=== PATIENT | male | born 1950 | race Caucasian/White ===

== ENCOUNTER 2018-06-14 06:51 | Day surgery (SDC) | payer OTHER ==
[2018-06-14 07:51] VITALS: BMI 40.0
[2018-06-14 09:37] VITALS: BP 150/82; PULSE 74; TEMP 97.9
--- NOTE | 2018-06-15 16:18 | PATH ---
Surgical Pathology Report Patient Name: GRZEGORZ DAVIES [facility]. Rec. #: [id number] /Age/Gender: 1950 (Age: 68) / M Account: [id number] Location: [facility]-ENDOSCOPY Taken: 06/14/2018 Received: 06/14/2018 Reported: 06/15/2018 Physicians: Jay Abrams M.D. Specimen(s) Received POLYP Clinical History Family history of colon cancer Postoperative diagnosis: Colon polyps, diverticulosis Final Diagnosis COLON, RIGHT, POLYPS, BIOPSY: TUBULAR ADENOMA(S). Electronically Signed Claudia Owens M.D. Gross Description Received in formalin, labeled "polyps right colon" are 5 roberts, irregular portions of soft tissue ranging from 0.2-0.4 cm. in greatest dimension. The specimens are submitted in toto in one cassette. /06/14/201806/14/2018
== END 2018-06-14 09:50 | disposition home or self-care (01) ==
LOC: JASU-ENDO 06:51
PROVIDERS: ATTEND Internal Medicine Gastroenterology
PROC: 0DBK8ZX Excision of Ascending Colon, Via Natural or Artificial Opening Endoscopic, Diagnostic (ICD-10-PCS; principal; 2018-06-14 08:00)
DX: Z12.11 Encounter for screening for malignant neoplasm of colon (principal); Z80.0 Family history of malignant neoplasm of digestive organs; D12.2 Benign neoplasm of ascending colon; K57.30 Diverticulosis of large intestine without perforation or abscess without bleeding; K64.8 Other hemorrhoids
CPT/HCPCS: 88305-TC

== ENCOUNTER 2019-05-22 05:39 | Inpatient (IN) | payer OTHER ==
[2019-05-22] MEDS ORDERED: CEFAZOLIN 3 GM in DEXTROSE 5%-WATER - 100 ML IVPB ONE (06:21)
[2019-05-22] MEDS ORDERED: TRANEXAMIC ACID 1000 MG/10 ML VIAL IVPUSH ONE (06:21)
[2019-05-22] MEDS ORDERED: CELECOXIB 200 MG CAPSULE PO ONE (06:21)
[2019-05-22] MEDS ORDERED: SODIUM CHLORIDE 0.9% P/F 10 ML VIAL IJ ONE (06:45)
[2019-05-22] MEDS ORDERED: BUPIVACAINE LIPOSOME/PF (EXPAREL) 266 MG/20 ML VIAL ONE (06:45)
[2019-05-22] MEDS ORDERED: MIDAZOLAM HCL 2 MG/2 ML SINGLE DOSE VIAL ONE (06:45)
[2019-05-22 06:57] VITALS: BMI 41.5
[2019-05-22] MEDS ORDERED: VANCOMYCIN 1,000 MG VIAL (RESTRICTED TO ID ONLY) ONE (07:02)
[2019-05-22] MEDS ORDERED: ceFAZolin SODIUM 1 GM VIAL ONE ×4 (07:02→21:11)
[2019-05-22] MEDS ORDERED: BUPIVACAINE HCL/PF 0.5% (5MG/ML) 10 ML VIAL ONE (07:59)
--- NOTE | 2019-05-22 08:00 | HP ---
Satellite [facility] - Chief Complaint Chief Complaint: left knee pain - Past Medical History Allergies/Adverse Reactions: Allergies Allergy/AdvReac Type Severity Reaction Status Date / Time Penicillins Allergy Severe Swelling Verified 05/22/19 06:27 - Current Medications Current Medications: Home Medications Medication Instructions Recorded Allopurinol 300 mg PO DAILY 06/13/18 Amlodipine Besylate 10 mg PO DAILY 06/13/18 Aspirin Coated [Ecotrin -] 81 mg PO DAILY 06/13/18 Atorvastatin Calcium 20 mg PO DAILY 06/13/18 Budesonide/Formeterol Fumarate 1 inh IH PRN PRN 06/13/18 [SYMBICORT 160/4.5mcg -] Clopidogrel Bisulfate [Clopidogrel] 75 mg PO DAILY 06/13/18 Dulaglutide [Trulicity] 1.5 mg SQ WEEKLY 06/13/18 Isosorbide Mononitrate [Isosorbide 60 mg PO DAILY 06/13/18 Mononitrate ER] Losartan/Hydrochlorothiazide 100 each PO DAILY 06/13/18 [Losartan-Hctz 100-25 mg Tab] Metoprolol Succinate [Kapspargo 100 mg PO HS 06/13/18 Sprinkle] Metoprolol Succinate [Kapspargo 200 mg PO AM 06/13/18 Sprinkle] [place]-3 Acid Ethyl Esters 2 cap PO BID 06/13/18 metFORMIN HCL [Metformin ER 1,000 mg PO BID 06/13/18 Osmotic] Cannabidiol (Cbd) Extract 100 mg PO DAILY 04/30/19 [Epidiolex] Satellite Physical Exam - Physical Examination Vital Signs: Vital Signs Period Temp Pulse Resp BP Sys/Helton Pulse Ox Last 24 Hr 98.6 F 74 20 138/84 93 General Appearance: Well Nourished, Well Developed, Alert & Oriented x3 ENT: Clear Lung: Normal air movement Extremities: Other (left knee- + swelling, + ttp ,decr rom, nvi, xrays show grade 4 tricompartmental djd) Neurological: Intact, Alert, Oriented Satellite Impression/Plan - Impression/Plan Impression: left knee djd Operative Procedure: left carolina tkr Date to be Performed: 05/22/19
[2019-05-22] MEDS ORDERED: BUDESONIDE/FORMETEROL FUMARATE 160/4.5 mcg INHALER IH PRN (08:02)
[2019-05-22] MEDS ORDERED: ONDANSETRON 4 MG/2 ML VIAL IVPUSH PRN (08:04)
[2019-05-22] MEDS ORDERED: MAG HYDROX/AL HYDROX/SIMETH 30 ML UNIT-DOSE CUP PO PRN (08:04)
[2019-05-22] MEDS ORDERED: MAGNESIUM HYDROX 2400MG/30ML ORAL SUSPENSION 30 ML CUP PO PRN (08:04)
[2019-05-22] MEDS ORDERED: LACTATED RINGERS SOLUTION 1,000 ML IV SCH (08:15)
[2019-05-22] MEDS ORDERED: VANCOMYCIN 1,000 MG VIAL (RESTRICTED TO ID ONLY) IVPB ONE (09:35)
[2019-05-22] MEDS ORDERED: SENNOSIDES/DOCUSATE COMBO (SENNA PLUS) TABLET (UD) PO SCH (10:00)
[2019-05-22] MEDS ORDERED: PATIENT'S OWN MEDICATION (NON-FORMULARY) (Metformin Hcl [Metformin Er Osmotic] 1,000 MG) PO SCH (10:00)
[2019-05-22] MEDS ORDERED: PATIENT'S OWN MEDICATION (NON-FORMULARY) (Losartan/Hydrochlorothiazide [Losartan-Hctz 100- PO SCH (10:00)
--- NOTE | 2019-05-22 10:04 | OP ---
Operative Note - Note: Operative Date: 05/22/19 ([facility]) Pre-Operative Diagnosis: left knee djd Operation: left carolina tkr Post-Operative Diagnosis: Same as Pre-op Surgeon: Adams Whiteside Batching Operator: Amado Rojas) Anesthesiologist/ORACLE EBS CONSULTANT: Rukhsana Rodriguez Anesthesia: Spinal, Local Specimens Removed: bone fragments Estimated Blood Loss (mls): 150
[2019-05-22] MEDS ORDERED: oxyCODONE HCL 5 MG TABLET PO PRN (11:28)
[2019-05-22] MEDS: traMADol HCL 50 MG TABLET PO PRN ×2 (12:04→21:33)
[2019-05-22] MEDS: ACETAMINOPHEN 325 MG TABLET (FP) PO SCH ×3 (14:02→23:48)
--- NOTE | 2019-05-22 14:05 | SPEC ---
DATE OF OPERATION: 05/22/2019 PREOPERATIVE DIAGNOSIS: Degenerative joint disease, left knee. POSTOPERATIVE DIAGNOSIS: Degenerative joint disease, left knee. PROCEDURE: Left total knee replacement with robotic-assisted navigation (Makoplasty). SURGICAL ATTENDING: Adams Whiteside MD CELLULOSE INSULATION HELPER: ALIYA Saldana SECOND MANAGER PROCESS IMPROVEMENT: Oni Vega MD ANESTHESIA: Regional and spinal. CLOSURE: A [place] Triathlon knee system with a 5 femur, 5 tibia, 9 polyethylene, 35 patella, number 1 Vicryl fascia, 0 and 3-0 subcutaneous, 3-0 Monocryl subcuticular with skin glue for skin, 4-0 undyed Vicryl for pin sites. ESTIMATED BLOOD LOSS: Less than 100 mL. COMPLICATIONS: None. CONDITION: To recovery room in stable condition. DESCRIPTION OF OPERATIVE PROCEDURE: Patient was taken to the operating room on May 22, 2019. Regional and general anesthesia was administered by the anesthesiologist. IV Kefzol and TXA were administered by the anesthesiologist. Well-padded pneumatic tourniquet was placed on the proximal thigh. The left lower extremity was prepped and draped in the usual sterile fashion. The leg was exsanguinated with an Esmarch bandage, and tourniquet was inflated to 275 mmHg. A 12 to 15-cm longitudinal midline incision was incised while centered over the patella. The dissection was carried down to the level of the extensor mechanism with sufficient flaps made to adequately perform the procedure. A medial parapatellar arthrotomy was then performed. We made a cuff of tissue on the patella for later closure. The patella was inverted, the knee was flexed up. The fat pad was excised. The subperiosteal dissection was on the anteromedial proximal tibia around towards the direction of the MCL. The ACL and the PCL were transected and debrided. The meniscal remnants of the medial and lateral meniscus were debrided and removed. This allowed the knee to be able to "be brought forward." The checkpoints were malleted into the tibia and into the femur. Two threaded pins were drilled anteroposteriorly proximal to the knee through the previous incision, through the anterior cortex, then just engaging the posterior cortex. To these pins was assembled the femoral navigation array. One handbreadth below the tibial tubercle, 2 stab incisions were used to drill 2 threaded pins in parallel fashion into the tibia, again through the anterior cortex and just engaging the posterior cortex. To these pins was fastened the tibial arrays. The knee was then registered with the navigation device with center of rotation of the hip, medial and lateral malleoli, both checkpoints, and multiple points on both the femur and the tibia to ensure excellent registration. The navigation device was directed off the "top of the bubbles" on both the femur and the tibia. The navigation passed within less than 0.5 mm to plan. The knee was then thoroughly inspected to remove all osteophytes both medially, laterally, and on the femur and the tibia, and whatever osteophytes were available for dissection. The knee was then taken to extension and to flexion and stressed in both varus and valgus to assess flexion gaps. The virtual position of the components on the navigation device were then manipulated to optimize the position and to ensure equal gaps in both flexion and extension, and both medially and laterally. The robot was then brought into the field and was registered. The cuts were then made both on the femur and on the tibia as to plan. All osteophytes posteriorly were then removed as well. The gaps were then measured again in flexion and extension to be equal in both flexion and extension and medial and laterally. The femoral notch was then made, as we were doing a posterior stabilizing component, with the appropriate sized box. Trial reduction of the femur achieved excellent [id number] fit. A tibial baseplate of appropriate polyethylene thickness was "floated in the knee." It was ensured to be in the excellent position by navigation devices and was pinned in place. The knee was taken through a range of motion and found to have excellent stability throughout flexion and extension. The patella was calibrated for thickness and osteotomized down to the appropriate level. The appropriate lollipop was used to drill the lug holes in the patella and the trial button was applied. The knee was taken through a range of motion and found to have excellent tracking of the patella, and patella from full extension to full flexion. Trial components were removed, the keel was punched and drilled, and a sclerotic bone on the tibia was drilled to help with cement interdigitation. The knee was thoroughly irrigated with the pulse antibiotic behavioral science chair. The real components were then cemented in using monitored arrangement cement techniques with antibiotic cement, and pressurization and extension. After the cement was hardened, the knee was thoroughly inspected to remove any extra cement. The real polyethylene component was then clipped into place. Range of motion, stability, and tracking were as described earlier. The checkpoints and the pins were removed. The knee was thoroughly irrigated with antibiotic irrigation. Vancomycin powder was placed into the knee for antibiotic prophylaxis. The medial parapatellar arthrotomy was then closed using number 1 Vicryl interrupted suture. After closure of the deep layer, the knee was taken through a range of motion, and found to have excellent stability of the patella with no dislocation and no undue tension on the repair. The subcutaneous was pulse antibiotic irrigated, and was then closed with 2-0 Vicryl, 3-0 Monocryl subcuticular with the skin glue for the skin. The distal tibial pin site was irrigated thoroughly as well and then closed with 4-0 undyed Vicryl. A sterile Aquacel dressing was applied, followed by a Sharpe dressing. Tourniquet was deflated. Total tourniquet time was approximately 75 minutes. No complications. Patient was awakened from anesthesia and transferred to recovery room in stable condition. Postoperative x-rays revealed excellent position of the components. Artie [id number]
[2019-05-22] MEDS: CEFAZOLIN 3 GM in DEXTROSE 5%-WATER 100 ML IVPB SCH ×2 (14:15→23:49)
[2019-05-22] MEDS: oxyCODONE HCL 5 MG TABLET PO PRN ×2 (15:05→21:33)
[2019-05-22] MEDS ORDERED: DEXTROSE 5%-WATER 100 ML IVPB ONE ×2 (15:06→21:12)
[2019-05-22] MEDS ORDERED: PT OWN MED DRAWER 7, Y5N ONE (15:06)
[2019-05-22] MEDS: INSULIN SLIDING SCALE (NOVOLOG) 1 VIAL SQ SCH ×2 (16:20→21:13)
[2019-05-22] MEDS: SENNOSIDES/DOCUSATE COMBO (SENNA PLUS) TABLET (UD) PO SCH (21:33)
[2019-05-22] MEDS ORDERED: PATIENT'S OWN MEDICATION (NON-FORMULARY) (Metoprolol Succinate [Kapspargo Sprinkle] 100 MG PO SCH (22:00)
[2019-05-23] MEDS: oxyCODONE HCL 5 MG TABLET PO PRN ×2 (00:25→07:06)
[2019-05-23] MEDS: ACETAMINOPHEN 325 MG TABLET (FP) PO SCH (06:13)
[2019-05-23] MEDS ORDERED: METOPROLOL SUCCINATE 200 MG PO SCH (07:00)
[2019-05-23 07:10] LABS: HEMOGLOBIN 12.8 GM/dl (11.7-16.9); MCH 29.1 pg (25.7-33.7); MCHC 31.2 g/dl (32.0-35.9); MEAN CELL VOLUME 93.3 fl (80-96); MEAN PLT VOLUME 8.4 fl (7.5-11.1); PLATELET COUNT 145 K/MM3 (134-434); RBC 4.39 M/mm3 (4.00-5.60); RDW 14.6 % (11.9-15.9); WHITE BLOOD COUNT 8.2 K/mm3 (4.0-10.8)
[2019-05-23] MEDS ORDERED: CLOPIDOGREL BISULFATE 75 MG TABLET (FP) PO SCH (08:00)
--- NOTE | 2019-05-23 08:30 | PN ---
Progress Note (short form) - Note Progress Note: Ortho Pt seen and examined s/p left carolina tkr pod #1 Selected Entries 05/23/19 06:00 Temperature 98.2 F Pulse Rate 86 Respiratory 18 Rate Blood Pressure 136/62 Laboratory Tests 05/23/19 07:04 WBC 8.2 Hgb 12.8 Hct 41.0 Plt Count 145 dressing c/d/i, calf soft, nt rom 0-40, nvi a/p PT dvt ppx pain control d/c home today f/u in 1 week
--- NOTE | 2019-05-23 08:33 | DS ---
Physical Examination Vital Signs: Vital Signs Temperature 98.2 F 05/23/19 06:00 Pulse Rate 86 05/23/19 06:00 Respiratory Rate 18 05/23/19 06:00 Blood Pressure 136/62 05/23/19 06:00 O2 Sat by Pulse Oximetry (%) 95 05/23/19 06:00 Labs: CBC, BMP 05/23/19 07:04 Discharge Summary Problems reviewed: Yes Reason For Visit: OSTEOARTHRITIS Procedures: Principal: left tkr Hospital Course: admitted for elective left carolina tkr, post-op per protocol, stable for d/c Condition: Good - Instructions Diet, Activity, Other Instructions: Post-op Instructions-Total Knee Replacement Call the office for a follow-up appointment in 1 week - [phone] Aspirin 325mg daily for 6 weeks. Pain medication was sent into your pharmacy. Apply Graduated Compression Stockings (TEDs) to both lower extremities- remove daily for hygiene ONLY Apply Sequential Compression Device (SCDs) to both Lower extremities remove for PT and hygiene ONLY Apply cold packs to affected area for 15 minutes every 2 hours. Physical Therapist will come to your home for the first 5 days. You will be set up with outpatient PT at your first post-operative visit. Patient may ambulate as tolerated-encourage self care (at least every 2-3 hours while awake) with walker or cane Maintain Aquacel (waterproof) dressing to operative wound (will be removed by surgeon at first office visit) Shower with Aquacel dressing in place-if Aquacel integrity compromised, remove and apply dry sterile dressing and notify Orthopedist. DO NOT SHOWER unless Orthopedists approves without Aquacel dressing CONTACT THE OFFICE FOR ANY CHANGE IN YOUR CONDITION (for example-fever greater than 102 degrees, excessive bleeding from operative site, purulent drainage, severe swelling or pain) GO TO THE EMERGENCY ROOM IF THERE IS A MEDICAL EMERGENCY Knee Precautions: * Keep a rolled towel under affected heel while in bed or chair (to keep knee in extension) * Keep affected leg elevated except during mealtimes * DO NOT PLACE PILLOW UNDER AFFECTED KNEE * If you have any questions, please do not hesitate to call the office - . Referrals: Oni Vega MD [Staff Physician] - Disposition: VNS/HOME HEALTH CARE - Home Medications Comprehensive Discharge Medication List: Ambulatory Orders Allopurinol 300 mg PO DAILY 06/13/18 Amlodipine Besylate 10 mg PO DAILY 06/13/18 Atorvastatin Calcium 20 mg PO DAILY 06/13/18 Budesonide/Formeterol Fumarate [SYMBICORT 160/4.5mcg -] 1 inh IH PRN PRN Dulaglutide [Trulicity] 1.5 mg SQ WEEKLY 06/13/18 Isosorbide Mononitrate [Isosorbide Mononitrate ER] 60 mg PO DAILY 06/13/18 Losartan/Hydrochlorothiazide [Losartan-Hctz 100-25 mg Tab] 100 each PO DAILY Metoprolol Succinate [Kapspargo Sprinkle] 100 mg PO HS 06/13/18 Metoprolol Succinate [Kapspargo Sprinkle] 200 mg PO AM 06/13/18 [place]-3 Acid Ethyl Esters 2 cap PO BID 06/13/18 metFORMIN HCL [Metformin ER Osmotic] 1,000 mg PO BID 06/13/18 Cannabidiol (Cbd) Extract [Epidiolex] 100 mg PO DAILY 04/30/19 Oxycodone HCl/Acetaminophen [Percocet 5-325 mg Tablet -] 1 - 2 tab PO Q6H #50 tab MDD 8 05/22/19 Aspirin [ASA -] 325 mg PO DAILY tablet 05/23/19
[2019-05-23] MEDS: SENNOSIDES/DOCUSATE COMBO (SENNA PLUS) TABLET (UD) PO SCH (09:24)
[2019-05-23 09:44] VITALS: BP 152/56; PULSE 82; TEMP 98
[2019-05-23] MEDS ORDERED: LOSARTAN 50MG/HCTZ 12.5MG 1 TAB (FP) PO SCH (10:00)
[2019-05-23] MEDS ORDERED: ATORVASTATIN CA 20 MG TABLET (FP) PO SCH (10:00)
[2019-05-23] MEDS ORDERED: MULTIVITAMINS (DAILY MVI) TABLET (FP) PO SCH (10:00)
[2019-05-23] MEDS ORDERED: ISOSORBIDE MONONITRATE 60 MG TAB.SR.24H (FP) PO SCH (10:00)
[2019-05-23] MEDS ORDERED: PATIENT'S OWN MEDICATION (NON-FORMULARY) (Dulaglutide [Trulicity] 1.5 MG) SQ SCH (10:00)
[2019-05-23] MEDS ORDERED: ALLOPURINOL 300 MG TABLET (FP) PO SCH (10:00)
[2019-05-23] MEDS ORDERED: PANTOPRAZOLE 40 MG TABLET PO SCH (10:00)
[2019-05-23] MEDS ORDERED: amLODIPine BESYLATE 10 MG TABLET (FP) PO SCH (10:00)
[2019-05-23] MEDS ORDERED: ASPIRIN 325 MG TABLET PO SCH (10:00)
--- NOTE | 2019-05-24 16:22 | PATH ---
Surgical Pathology Report Patient Name: GRZEGORZ DAVIES Med. Rec. #: [id number] /Age/Gender: 1950 (Age: 68) / M Account: [id number] Location: [facility] Taken: 05/22/2019 Received: 05/22/2019 Reported: 05/24/2019 Physicians: Adams Whiteside M.D. Specimen(s) Received BONES LEFT KNEE Clinical History Osteoarthritis left knee Final Diagnosis BONES, KNEE, LEFT, TOTAL KNEE REPLACEMENT MAKOPLASTY: BONE WITH DEGENERATIVE JOINT DISEASE. Electronically Signed Claudia Owens M.D. Gross Description Received in formalin labeled "left knee bones" is a 8.5 x 8 x 5 cm aggregate of multiple portions of bone and soft tissue. The tibial plateau measures 8 x 6 x 1.5 cm. There are focal areas of eburnation identified. The articular surface is roberts-yellow and granular. The underlying trabecular bone is yellow and hard. Rehab/Pre Vocational Counselor sections submitted in one cassette, following decalcification. MLSZ/05/22/2019 sanmelia/05/22/2019
== END 2019-05-23 18:30 | disposition home health service (06) | DRG 470 ==
LOC: FM/S 05:39
PROVIDERS: ADMIT Orthopaedic Surgery; ATTEND Orthopaedic Surgery
PROC: 8E0Y0CZ Robotic Assisted Procedure of Lower Extremity, Open Approach (ICD-10-PCS; 2019-05-22)
PROC: 0SRD0J9 Replacement of Left Knee Joint with Synthetic Substitute, Cemented, Open Approach (ICD-10-PCS; principal; 2019-05-22 08:27)
DX: M17.12 Unilateral primary osteoarthritis, left knee (principal); Z88.0 Allergy status to penicillin
CPT/HCPCS: 36415; 73560-TC-LT-FY; 82962; 85027; 94760; 97116-GP; 97162-GP